=== PATIENT | female | born 2000 | race African-American/Black ===

== ENCOUNTER 2019-08-09 17:30 | Emergency (ER) | payer MEDICAID ==
[~2019-08-09] VITALS: Ht 162.6 cm; Wt 65.0 kg
[2019-08-09] MEDS ORDERED: IBUPROFEN 600MG TABLET PO ONE (18:45)
[2019-08-09] MEDS ORDERED: LIDOCAINE HCL/PF 1% 10 MG/ML 5ML VIAL IJ ONE (19:45)
[2019-08-09] MEDS ORDERED: BACITRACIN ZINC OINT UDPKT TOP ONE (20:15)
[2019-08-09 20:20] VITALS: BP 131/84
== END 2019-08-09 20:24 | disposition home or self-care (01) ==
LOC: ER 17:30
DX: S01.01XA Laceration without foreign body of scalp, initial encounter (principal); J45.909 Unspecified asthma, uncomplicated; Y04.0XXA Assault by unarmed brawl or fight, initial encounter; Y93.01 Activity, walking, marching and hiking; Y92.89 Other specified places as the place of occurrence of the external cause; Y99.8 Other external cause status
CPT/HCPCS: 12002; 70450; 81025; 99284; J3490

== ENCOUNTER 2019-08-11 12:35 | Emergency (ER) | payer MEDICAID ==
[~2019-08-11] VITALS: Ht 172.7 cm; Wt 60.0 kg
[2019-08-11 13:11] VITALS: BP 105/66
== END 2019-08-11 14:03 | disposition home or self-care (01) ==
LOC: ER 12:35
DX: Z48.00 Encounter for change or removal of nonsurgical wound dressing (principal)
CPT/HCPCS: 99281

== ENCOUNTER 2020-06-26 20:33 | Observation (INO) | payer MEDICAID ==
[~2020-06-26] VITALS: Ht 172.7 cm; Wt 64.9 kg
[2020-06-26] MEDS ORDERED: PREN1TAB78 PO (21:14)
[2020-06-26 21:44] LABS: CLARITY URINE CLOUDY (CLEAR); COLOR URINE YELLOW (YELLOW); KETONES URINE 1+ (NEGATIVE); LEUKOCYTE ESTERASE URINE 3+ (NEGATIVE); NITRITE URINE NEGATIVE (NEGATIVE); OCCULT BLOOD URINE 3+ (NEGATIVE); PH URINE 5.5 (4.5-8.0); PROTEIN URINE NEGATIVE (NEGATIVE); SPECIFIC GRAVITY URINE 1.016 (1.005-1.030)
[2020-06-26] MEDS ORDERED: METR500T MT (22:49)
== END 2020-06-26 23:00 | disposition home or self-care (01) ==
LOC: 8 EST LDRP 20:33
PROVIDERS: ADMIT Obstetrics & Gynecology; ATTEND Obstetrics & Gynecology
DX: O46.93 Antepartum hemorrhage, unspecified, third trimester (principal); Z3A.28 28 weeks gestation of pregnancy
CPT/HCPCS: 59025; 76805; 76818; 81003; G0378; 99281

== ENCOUNTER 2022-04-21 16:07 | Emergency (ER) | payer MEDICAID ==
[~2022-04-21] VITALS: Ht 170.2 cm; Wt 60.0 kg
[~2022-04-21 16:07] MED LIST: METR500T MT; PREN1TAB78 PO
[2022-04-21] MEDS ORDERED: IBUPROFEN 600MG TABLET PO ONE (22:00)
[2022-04-21 22:01] LABS: CLARITY URINE CLEAR (CLEAR); COLOR URINE YELLOW (YELLOW); KETONES URINE NEGATIVE (NEGATIVE); LEUKOCYTE ESTERASE URINE TRACE (NEGATIVE); NITRITE URINE NEGATIVE (NEGATIVE); OCCULT BLOOD URINE NEGATIVE (NEGATIVE); PH URINE 6.5 (4.5-8.0); PROTEIN URINE NEGATIVE (NEGATIVE); SPECIFIC GRAVITY URINE 1.015 (1.005-1.030)
[2022-04-21 23:01] VITALS: BP 131/80
[2022-04-21] MEDS ORDERED: IBUP-2029 MT (23:13)
== END 2022-04-21 23:30 | disposition home or self-care (01) ==
LOC: ER 16:07
DX: R10.2 Pelvic and perineal pain (principal); R03.0 Elevated blood-pressure reading, without diagnosis of hypertension
CPT/HCPCS: 76830; 76856; 81003; 81025; 99284

== ENCOUNTER 2022-05-07 04:41 | Emergency (ER) | payer MEDICAID ==
[~2022-05-07] VITALS: Ht 170.2 cm; Wt 67.3 kg
[~2022-05-07 04:41] MED LIST changes: +IBUP-2029 MT
[2022-05-07 06:03] LABS: CLARITY URINE CLOUDY (CLEAR); COLOR URINE YELLOW (YELLOW); KETONES URINE NEGATIVE (NEGATIVE); LEUKOCYTE ESTERASE URINE 3+ (NEGATIVE); NITRITE URINE NEGATIVE (NEGATIVE); OCCULT BLOOD URINE 2+ (NEGATIVE); PH URINE 6.5 (4.5-8.0); PROTEIN URINE NEGATIVE (NEGATIVE); SPECIFIC GRAVITY URINE 1.014 (1.005-1.030)
[2022-05-07] MEDS ORDERED: CEFTRIAXONE SODIUM 500 MG/VIAL IM ONE (06:15)
[2022-05-07] MEDS ORDERED: DOXYCYCLINE HYCLATE 100MG CAPSULE PO ONE (06:15)
[2022-05-07 07:05] VITALS: BP 121/69
[2022-05-07] MEDS ORDERED: NITR100C MT (07:09)
[2022-05-07] MEDS ORDERED: DOXY100C5 MT (07:09)
== END 2022-05-07 07:15 | disposition home or self-care (01) ==
LOC: ER 04:41
DX: N39.0 Urinary tract infection, site not specified (principal); Z86.19 Personal history of other infectious and parasitic diseases
CPT/HCPCS: 81003; 81025; 96372; 99283; J0696; Z7610